=== PATIENT | female | born 1935 | race Caucasian/White ===

== ENCOUNTER 2017-09-03 13:09 | Emergency (ER) | payer MEDICARE, BC ==
[~2017-09-03] VITALS: Ht 165.1 cm; Wt 88.0 kg
[~2017-09-03 13:09] MED LIST: AMITRIPTYLINE100 MG ORAL; CYMBALTA60 MG ORAL; PLAQUENIL200 MG ORAL; SYNTHROID25 MCG ORAL; TOPIRAMATE25 MG ORAL
--- NOTE | 2017-09-03 13:25 | Emergency Room Report ---
History of Present Illness General Chief Complaint: Chest Pain Source: Patient, EMS Present Illness HPI 82-year-old female comes arthritis, presenting with burning epigastric pain started today. Patient states that she frequently gets this many times, can usually take her [place] and comes and it goes away. Patient states that she ran out of medication so she was not able to take it. Patient states that the pain has resolved upon coming to the emergency room. Denies chest pain shortness of breath nausea vomiting. States that she had endoscopy and colonoscopy before in the past that was negative except showed polyps Patient states that this abdominal pain is similar to all her other times it she 's had abdominal pain Patient states the abdominal pain has completely gone away by the time she got to the emergency room. Allergies: Coded Allergies: SULFAMETHOXAZOLE (Verified Allergy, Mild, Rash, 02/01/16) TRIMETHOPRIM (Verified Allergy, Mild, Rash, 02/01/16) PENICILLIN G (Verified Allergy, Unknown, 10/18/09) LORAZEPAM (Verified Adverse Reaction, Intermediate, 05/30/16) night sleep walking., ams, nite eating. Patient History Past Medical History: see triage record Past Surgical History: none Pertinent Family History: none Reviewed Nursing Documentation: PMH: Agreed, PSxH: Agreed Nursing Documentation-PMH Past Medical History: No History, Except For Hx Gastrointestinal Problems: Yes - Acid reflux History Of Psychiatric Problem: Yes - depression Review of Systems All Other Systems: negative except mentioned in HPI Physical Exam Vital Signs Date Time Temp Pulse Resp B/P (MAP) Pulse Ox O2 Delivery O2 Flow Rate FiO2 09/03/17 13:01 97.3 72 18 99/64 97 Room Air Sp02 EP Interpretation: reviewed, normal General Appearance: normal inspection, well appearing, no apparent distress, alert, GCS 15, non-toxic Head: normocephalic, atraumatic Eyes: bilateral eye normal inspection, bilateral eye PERRL, bilateral eye EOMI ENT: normal ENT inspection, normal pharynx, normal voice, moist mucus membranes Neck: normal inspection, full range of motion, supple Respiratory: normal inspection, lungs clear, normal breath sounds, no respiratory distress, no retraction, no wheezing, speaking full sentences, chest symmetrical Cardiovascular #1: normal inspection, regular rate, rhythm, no edema, normal capillary refill Cardiovascular #2: 2+ radial (R), 2+ radial (L) Gastrointestinal: normal inspection, non tender, soft, non-distended, no guarding Musculoskeletal: normal inspection, back normal, normal range of motion, non- tender Neurologic: normal inspection, alert, oriented x3, responsive, motor strength/ tone normal, sensory intact, normal gait, speech normal Psychiatric: normal inspection, judgement/insight normal, memory normal Skin: normal inspection, normal color, no rash, warm/dry, well hydrated, normal turgor Medical Decision Making Diagnostic Impression: Primary Impression: Chronic epigastric pain ER Course 82-year-old female presenting with burning epigastric pain DDX: Gastritis Other differentials include cholecystitis/biliary colic, appendicitis, diverticulitis. Patient currently not complaining of any pain, abdomen is completely nontender at this time Plan: GI cocktail, Pepcid ER course: Patient has remained stable during ED stay. Insisting that she has had this pain in the past, but has had absolutely no pain even prior coming to the emergency room. She is a reliable patient, ANO x4. 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 Not complaining of any chest pain shortness of breath nausea vomiting. She is eating and drinking normally. Offered to do lab work on this patient, she states that she feels better he would not like to do any at this time. States that she has had this multiple times in the past Repeat BP 127/80 Disposition: Patient is to be discharged to home. Prescriptions given are Pepcid Patient is instructed to follow up with their primary care doctor within 5 days. Patient is instructed to follow up with gastroenterology within 3 days. Strict return precautions discussed with patient such as fever, chills, worsening/severe pain, chest pain, SOB, nausea, vomiting, which may indicate severe illness. Patient verbalizes understanding and agrees with plan. Please note that this Emergency Department Report was dictated using [id number] stacker technology software, occasionally this can lead to erroneous entry secondary to interpretation by the dictation equipment EKG Diagnostic Results EP Interpretation: Yes Rate: normal Rhythm: NSR ST Segments: No acute changes ASA given to patient: No Last Vital Signs Date Time Temp Pulse Resp B/P (MAP) Pulse Ox O2 Delivery O2 Flow Rate FiO2 09/03/17 13:01 97.3 72 18 99/64 97 Room Air Disposition: HOME, SELF-CARE Condition: Improved Scripts Famotidine (PEPCID) 40 Mg Tablet 40 MG PO DAILY, #7 TAB 0 Refills Prov: Genesis Brandt M.D. 09/03/17 Genesis Brandt M.D. Sep 03, 2017 13:25
[2017-09-03] MEDS ORDERED: Lidocaine 2% Visc 15ml soln ORAL ONE (13:30)
[2017-09-03] MEDS ORDERED: Dicyclomine HCl 10mg/5ml oral soln ORAL ONE (13:30)
[2017-09-03] MEDS ORDERED: Mylanta II UD 30ml ORAL ONE (13:30)
[2017-09-03] MEDS ORDERED: PEPCID40 MG PO (13:38)
[2017-09-03 14:36] VITALS: BP 141/49
--- NOTE | 2017-09-04 15:50 | Cardiology Report ---
APPROVED REPORT EKG Measurement Heart [id number] VT [id number] Sinus rhythm with 1st degree AV block Otherwise normal ECG
== END 2017-09-03 14:30 | disposition home or self-care (01) ==
LOC: EDBD 13:09 → EMR 13:36
DX: G89.29 Other chronic pain (principal); R10.13 Epigastric pain; F32.9 Major depressive disorder, single episode, unspecified; K21.9 Gastro-esophageal reflux disease without esophagitis; Z88.2 Allergy status to sulfonamides; Z88.8 Allergy status to other drugs, medicaments and biological substances; Z88.0 Allergy status to penicillin
CPT/HCPCS: 93005; 96361; 96374; 99284